=== PATIENT | male | born 1960 | race Caucasian/White ===

== ENCOUNTER → 2019-12-12 | Outpatient (CLI) | payer SELFPAY ==
--- NOTE | 2019-12-12 16:04 | Diagnostic Imaging Report ---
INDICATION: Pain, bruising. COMPARISON: None available. TECHNIQUE: Four radiographs of the right foot dated 12/12/2019. FINDINGS: Curvilinear calcification is noted superior to the talar neck on the lateral radiograph, concerning for a recent avulsion fracture. Additionally, a lucency is noted extending through the anterior process of the calcaneus on the lateral radiograph. Small calcific densities are also noted associated with the most anterior aspect of the calcaneus on the frontal radiograph. Soft tissue swelling is noted involving the foot, particularly laterally. No additional fracture. No dislocation. The Lisfranc joint is well aligned. No suspicious radiopaque foreign body. Mild scattered degenerative changes. IMPRESSION: Recent appearing minimally distracted avulsion fracture arising from the neck of the talus. Recent appearing fracture involving the anterior process of the calcaneus is suspected. This could be confirmed with a CT of the hindfoot. Soft tissue swelling, particularly laterally. Report given to Asher Crews MA at 4:00 p.m. 12/12/2019/devon Dictated by: Dictated on workstation # [id number]
== END ==
LOC: RAD FS 14:52
PROVIDERS: ATTEND Nurse Practitioner
DX: S92.151A Displaced avulsion fracture (chip fracture) of right talus, initial encounter for closed fracture (principal); X58.XXXA Exposure to other specified factors, initial encounter
CPT/HCPCS: 73630